=== PATIENT | female | born 2000 | race Caucasian/White ===

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

== ENCOUNTER 2020-12-06 23:38 | Emergency (ER) | payer OTHER ==
[2020-12-06 23:45] VITALS: BP 111/61; PULSE 85; TEMP 98; BMI 25.8
[2020-12-07] MEDS ORDERED: DEXAMETHASONE SOD PHOSPHATE 10 MG/1 ML VIAL PO ONE (01:14)
[2020-12-07] MEDS ORDERED: KETOROLAC TROMETHAMINE 30 MG/1 ML VIAL IM ONE (01:16)
[2020-12-07] MEDS ORDERED: KETOROLAC TROMETHAMINE 30 MG/1 ML VIAL ONE (01:22)
[2020-12-07] MEDS ORDERED: DEXAMETHASONE SOD PHOSPHATE 10 MG/1 ML VIAL ONE (01:22)
== END 2020-12-07 02:45 | disposition home or self-care (01) ==
LOC: JER 23:38
PROC: 3E0233Z Introduction of Anti-inflammatory into Muscle, Percutaneous Approach (ICD-10-PCS; principal; 2020-12-06)
DX: J02.8 Acute pharyngitis due to other specified organisms (principal); Z11.52 Encounter for screening for COVID-19
CPT/HCPCS: 87804; 87880; 96372; 99284-25; C9803; J1100; U0003; U0005

== ENCOUNTER 2021-12-22 12:25 | Emergency (ER) | payer OTHER ==
[2021-12-22 12:38] VITALS: BP 120/76; PULSE 60; RESP 18; TEMP 98; BMI 28.0
== END 2021-12-22 13:36 | disposition home or self-care (01) ==
LOC: JERFT 12:25
DX: L03.116 Cellulitis of left lower limb (principal)
CPT/HCPCS: 99283-25